=== PATIENT | female | born 1980 | race Caucasian/White ===

== ENCOUNTER 2024-06-24 05:45 | Day surgery (SDC) | payer BC ==
[2024-06-19 15:58] VITALS: BP 128/83
[~2024-06-24] VITALS: Ht 162.6 cm; Wt 79.5 kg
[~2024-06-24 05:45] MED LIST: BACTRIM DS TAB1 EACH PO; CELEBREX200 MG PO; FERROUS SULFAT325 MG PO; GABAPENTIN300 MG PO; HYDROCODON-ACE1 EA11 PO; IBUPROFEN800 MG PO; IRON325 M1 PO; JOLESSA1 EACH PO; LACTATED RINGER'S 1,000 ML IV SCH; OZEMPIC0.25 MG/02 SQ; PRENA1 PLUS CO1 EACH PO; SENNA LAX8.6 MG PO; TERCONAZOLE20 GM VAGINAL; VIT D2-K1 20-1259 ML PO; ZOLOFT100 MG PO
[2024-06-24 05:54] VITALS: BP 131/82
[2024-06-24] MEDS ORDERED: IBLOOD GLUCOSE TEST STRIP 1 EA TEST VI PRN ×2 (07:00→08:15)
[2024-06-24] MEDS ORDERED: LIDOCAINE HCL 1% 5 ML SDV INJ ONE (07:00)
[2024-06-24] MEDS ORDERED: ondansetron HCL 4 MG/2 ML VIAL ONE (07:02)
[2024-06-24] MEDS ORDERED: KETOROLAC TROMETHAMINE 30 MG/ML VIAL ONE (07:02)
[2024-06-24] MEDS ORDERED: dexmedeTOMIDine HCl 200 MCG/2 ML VIAL ONE (07:02)
[2024-06-24] MEDS ORDERED: propofoL 200 MG/20 ML VIAL ONE (07:02)
[2024-06-24] MEDS ORDERED: DEXAMETHASONE SOD PHOS 4 MG/ML VIAL ONE (07:02)
[2024-06-24] MEDS ORDERED: MIDAZOLAM HCL 2 MG/2 ML VIAL ONE (07:03)
[2024-06-24] MEDS ORDERED: LIDOCAINE HCL 1% 30 ML SDV ONE (07:03)
[2024-06-24] MEDS ORDERED: KETAMINE in NS 50 MG/5 ML SYR ONE (07:05)
[2024-06-24] MEDS ORDERED: ACETAMINOPHEN 1,000 MG/100 ML VIAL ONE (07:09)
[2024-06-24] MEDS ORDERED: ROCURONIUM BROMIDE 50 MG/5 ML SYR ONE (07:25)
[2024-06-24] MEDS ORDERED: SUGAMMADEX SODIUM 200 MG/2 ML ML ONE (08:02)
[2024-06-24] MEDS ORDERED: fentaNYL citrate 50 MCG/ML SDV IV PRN (08:15)
[2024-06-24] MEDS ORDERED: NALOXONE HCL 0.4 MG SYR IV PRN ×2 (08:15→08:45)
[2024-06-24] MEDS ORDERED: ondansetron HCL 4 MG/2 ML VIAL IV PRN ×2 (08:15→08:45)
[2024-06-24] MEDS ORDERED: droPERidol 5 MG/2 ML VIAL IV PRN (08:15)
[2024-06-24] MEDS ORDERED: HYDROmorphone HCL 1 MG/ML SYR IV PRN (08:15)
[2024-06-24] MEDS ORDERED: OXYCODONE/APAP 5/325 TAB PO PRN (08:45)
[2024-06-24] MEDS ORDERED: FAMOTIDINE 20 MG/ 2 ML VIAL IV PRN (08:45)
[2024-06-24] MEDS ORDERED: MAGNESIUM HYDROXIDE/AL HYDROX 30 ML CUP PO PRN (08:45)
[2024-06-24] MEDS ORDERED: METOCLOPRAMIDE HCL 10 MG/2 ML SDV IV PRN (08:45)
[2024-06-24] MEDS ORDERED: MORPHINE SULFATE 10 MG/ML VIAL IV PRN (08:45)
[2024-06-24] MEDS ORDERED: SIMETHICONE 125 MG TABLET CHEWABLE PO PRN (08:45)
[2024-06-24] MEDS ORDERED: SIMETHICONE 125 MG TABLET CHEWABLE PO SCH (09:00)
[2024-06-24 09:20] VITALS: BP 108/72
[2024-06-24 10:27] VITALS: BP 121/86
[2024-06-24 11:19] VITALS: BP 130/76
--- NOTE | 2024-06-24 22:01 | OR ---
[facility] [address] [place], [place] [address] Signed DATE OF OPERATION: 06/24/2024 SURGEON: Rhona Shepard DO PREOPERATIVE DIAGNOSES: 1. Desires salpingectomy. 2. At risk for ovarian cancer. 3. IUD removal. POSTOPERATIVE DIAGNOSES: 1. Desires salpingectomy. 2. At risk for ovarian cancer. 3. IUD removal. PRODUCT AMBASSADOR: None. ANESTHESIA: General. PROCEDURES PERFORMED: 1. Bilateral salpingectomy. 2. IUD removal. ESTIMATED BLOOD LOSS: 10 mL. COMPLICATIONS: None. SPECIMEN: Bilateral fallopian tubes. INDICATIONS: Ms. Reed is a very pleasant 44-year-old female, who presents desiring salpingectomy and IUD removal. She and her have completed fertility and she would like to avoid hormonal contraception if possible. We reviewed the procedure in detail including risks, benefits, alternatives, and discussed that salpingectomy performed at [facility] is done primarily for ovarian cancer risk reduction. The patient understands and wished to proceed with the procedure. Electronically Signed By: RHONA SHEPARD DO (JD) 06/24/24 220 PATIENT NAME: RUPINDER REED OPERATIVE REPORT DATE OF : 84 REPORT #: [id number] PHYSICIAN: RHONA SHEPARD DO (JD) PCP: JOB WASHBURN PAC REPORT IS CONFIDENTIAL AND NOT TO BE RELEASED WITHOUT AUTHORIZATION [facility] [address] [place], [place] [address] Signed TECHNIQUE: The patient was taken to the OR where a time-out was performed to confirm correct patient and correct procedure. General anesthesia was adequately established. The patient was prepped and draped in dorsal lithotomy position with feet in Yellofin stirrups. ICPs were on and running and no preoperative antibiotics was indicated. A weighted speculum was placed in the vagina and the anterior lip of the cervix was grasped with an Allis clamp. The IUD was identified and easily removed with polyp forceps. A [employer] uterine manipulator was placed. A Michaels catheter was inserted and attention was turned to the abdomen. Surgeon's gloves were changed. The base of the umbilicus was infiltrated with 0.25% Marcaine with epinephrine and a 5 mm stab incision was made at the base of the umbilicus. A 5 mm assist port was placed under direct visualization without complication. Survey of the abdomen and pelvis was performed demonstrating normal liver, gallbladder, stomach, appendix, and pelvis. Normal uterus, tubes, and ovaries appreciated. No evidence of other pelvic pathology. 5 mm assist ports were placed in the left lower and right lower quadrants under direct visualization without complication. The right fallopian tube was grasped at the fimbriated end, elevated and divided along the mesosalpinx using LigaSure device. Excellent hemostasis was appreciated and the fallopian tube was amputated at the cornu. The tube was removed through the trocar and sent to pathology for further evaluation. The process was repeated on the left without complication. A small amount of oozing was noted from] the right lower quadrant assist port. The trocars were removed and Blaise-Sonja device was selected and the port site was closed with two sutures of 0 Vicryl passed laparoscopically. Excellent hemostasis was appreciated. The pelvis was irrigated, found to be hemostatic. Pneumoperitoneum was reduced. Trocars were removed and trocar sites were repaired using 3-0 Vicryl Rapide. Excellent hemostasis and cosmesis was appreciated. The Michaels catheter and uterine manipulator were removed. The patient was taken to the PACU in good and stable condition. Sponge, needle, and instrument count was correct x2 at the end of the procedure. DO HORTENCIA Lobo/STEVENL /[id number] Electronically Signed By: RHONA SHEPARD DO (JD) 06/24/242200 PATIENT NAME: RUPINDER REED OPERATIVE REPORT DATE OF : 84 REPORT #: [id number] PHYSICIAN: RHONA SHEPARD DO (JD) PCP: JOB WASHBURN PAC REPORT IS CONFIDENTIAL AND NOT TO BE RELEASED WITHOUT AUTHORIZATION [facility] [address] [place] [address] [place], [place] [address] Signed Copies: ~ Electronically Signed By: RHONA SHEPARD DO (JD) 06/24/242200 PATIENT NAME: RUPINDER REED OPERATIVE REPORT DATE OF : 84 REPORT #: [id number] PHYSICIAN: RHONA SHEPARD (LIAM) DO PCP: JOB WASHBURN PAC REPORT IS CONFIDENTIAL AND NOT TO BE RELEASED WITHOUT AUTHORIZATION
--- NOTE | 2024-06-27 16:33 | PATH ---
[facility] [address] [place], [place] [address] Signed SPECIMEN(S): A FALLOPIAN TUBES, BILATERAL SPECIMEN SOURCE: A. FALLOPIAN TUBES, BILATERAL CLINICAL HISTORY: Risk reduction for ovarian CA. FINAL PATHOLOGIC DIAGNOSIS: Fallopian tubes, bilateral, salpingectomy: - Fimbriated fallopian tube segments (two) with no significant pathologic changes BRP MICROSCOPIC EXAMINATION: Histologic sections of all submitted blocks are examined by light microscopy. These findings, together with the gross examination, support the pathologic diagnosis. GROSS DESCRIPTION: The specimen, labeled and designated "Derek, bilateral fallopian tubes," is received in formalin and consists of two undesignated fallopian tubes. Both show fimbria and violaceus and smooth serosa. The first tube measure 5.5 x 0.5 cm. The second fallopian tube measure 6.0 x 0.6 cm. Sectioning through both fallopian tubes is grossly unremarkable. Cassette Summary: (A1) first fallopian tube, labor representative sections (A2) second fallopian tube, labor representative sections JS (under the direct supervision of a pathologist) The Gross Description was prepared using a voice recognition system. The report was reviewed for accuracy; however, sound-alike word errors, addition and/or deletions may occur. If there is any question about this report, please contact Client Services. ADDITIONAL NOTES: Immunohistochemical and/or in situ hybridization studies if performed in this case included appropriate positive controls that reacted as expected. This test was developed and its performance characteristics determined by [facility]. It has not been cleared or approved by the U.S. Food and Drug Administration. The FDA has determined that such clearance or approval is not PATIENT NAME: RUPINDER MAIER PATHOLOGY DATE OF : 84 REPORT #: [id number] PHYSICIAN: PAULIE CAMARILLO PCP: JOB WASHBURN PAC REPORT IS CONFIDENTIAL AND NOT TO BE RELEASED WITHOUT AUTHORIZATION [facility] [address] [place], [place] [address] Signed necessary. This test is used for clinical purposes. It should not be regarded as investigational or for research. [facility] is certified under the Clinical Laboratory Improvement Amendments of 1988 (CLIA) as qualified to perform high complexity clinical laboratory testing. PERFORMING LABORATORY: Technical component was performed by [facility], [address] [place] [address] (CLIA# [id number]). Professional interpretation was performed by [facility] Pathology - [address] [id number] Diagnostician: Nathen Vasquez MD Pathologist Electronically Signed 06/27/2024 Copies: ~ PATIENT NAME: RUPINDER MAIER PATHOLOGY DATE OF : 84 REPORT #: [id number] PHYSICIAN: PAULIE PATHOLOGY PCP: JOB WASHBURN PAC REPORT IS CONFIDENTIAL AND NOT TO BE RELEASED WITHOUT AUTHORIZATION
== END 2024-06-24 11:44 | disposition home or self-care (01) ==
LOC: OPS 05:45 → DS 05:45 → OPS 07:30
PROVIDERS: ATTEND Obstetrics & Gynecology
PROC: 0UPD0HZ Removal of Contraceptive Device from Uterus and Cervix, Open Approach (ICD-10-PCS; 2024-06-24)
PROC: 0UT74ZZ Resection of Bilateral Fallopian Tubes, Percutaneous Endoscopic Approach (ICD-10-PCS; principal; 2024-06-24 07:30)
DX: Z40.03 Encounter for prophylactic removal of fallopian tube(s) (principal); Z30.432 Encounter for removal of intrauterine contraceptive device; Z30.2 Encounter for sterilization
CPT/HCPCS: 00840; J0131; J1100; J1885; J2250; J2405; J2704; J3010; J3490; J7121

== ENCOUNTER 2025-08-15 10:30 | Emergency (ER) | payer OTHER, BC ==
[~2025-08-15] VITALS: Ht 162.6 cm; Wt 76.0 kg
[~2025-08-15 10:30] MED LIST changes: -LACTATED RINGER'S 1,000 ML IV SCH
[2025-08-15] MEDS ORDERED: IBUPROFEN 600 MG TAB PO ONE (11:15)
[2025-08-15 12:24] VITALS: BP 126/75
== END 2025-08-15 12:24 | disposition home or self-care (01) ==
LOC: ED 10:30
DX: S93.402A Sprain of unspecified ligament of left ankle, initial encounter (principal); Z79.85 Long-term (current) use of injectable non-insulin antidiabetic drugs; Z79.899 Other long term (current) drug therapy; X50.1XXA Overexertion from prolonged static or awkward postures, initial encounter; Y93.02 Activity, running
CPT/HCPCS: 73610; 99283; A9270

== ENCOUNTER 2025-11-23 07:35 | Day surgery (SDC) | payer BC ==
[~2025-11-23] VITALS: Ht 162.6 cm; Wt 77.0 kg
[~2025-11-23 07:35] MED LIST changes: +CEFAZOLIN SODIUM 2 GM in SODIUM CHLORIDE 0.9% 100 ML IV SCH; +IBLOOD GLUCOSE TEST STRIP 1 EA TEST VI PRN; +KETOROLAC TROMETHAMINE 30 MG/ML VIAL ONE; +LACTATED RINGER'S 1,000 ML IV SCH; +LIDOCAINE HCL 1% 5 ML SDV INJ ONE; +WELLBUTRIN XL150 MG PO
[2025-11-23 07:47] VITALS: BP 143/86
[2025-11-23] MEDS ORDERED: fentaNYL citrate 100 MCG/2 ML VIAL ONE (08:11)
[2025-11-23] MEDS ORDERED: MIDAZOLAM HCL 2 MG/2 ML VIAL ONE (08:11)
[2025-11-23] MEDS ORDERED: LIDOCAINE HCL 2% 5 ML SDV ONE (08:19)
[2025-11-23] MEDS ORDERED: DEXAMETHASONE SOD PHOS 4 MG/ML VIAL ONE (08:29)
[2025-11-23] MEDS ORDERED: KETOROLAC TROMETHAMINE 30 MG/ML VIAL ONE (08:29)
[2025-11-23] MEDS ORDERED: ACETAMINOPHEN 1,000 MG/100 ML VIAL ONE (08:29)
[2025-11-23] MEDS ORDERED: HYDROCODON-ACE1 EA10 PO (08:53)
[2025-11-23] MEDS ORDERED: DICLOFENAC SODI75 MG PO (08:53)
[2025-11-23] MEDS ORDERED: NALOXONE HCL 0.4 MG SYR IV PRN (09:00)
[2025-11-23] MEDS ORDERED: KETOROLAC TROMETHAMINE 15 MG/ML VIAL IV PRN (09:00)
[2025-11-23] MEDS ORDERED: DICLOFENAC SOD 75 MG TABEC PO SCH (09:00)
[2025-11-23] MEDS ORDERED: fentaNYL citrate 50 MCG/ML SDV IV PRN (09:00)
[2025-11-23] MEDS ORDERED: HYDROCODONE/ACETA 5/325 TAB PO PRN (09:00)
[2025-11-23] MEDS ORDERED: IBLOOD GLUCOSE TEST STRIP 1 EA TEST VI PRN (09:00)
--- NOTE | 2025-11-23 09:03 | NUR ---
11/23/25 0903 Michaela Jett 0853-PT ARRIVES TO PACU, VIA STRETCHER, PT NOT RESPONSIVE TO NOXIOUS STIMULI, OPA IN PLACE, RR EVEN AND UNLABORED, VSS ON 6L VIA MASK.
[2025-11-23 09:40] VITALS: BP 132/73
--- NOTE | 2025-11-23 09:49 | NUR ---
0940-PT BACK TO ROOM FROM PACU ON RA. RECEIVED REPORT FROM TIFFANIE. PT IS AWAKE. RESP EVEN AND UNLABORED. DENIES PAIN AND NAUSEA. CRYO CUFF IN PLACE AND RUNNING. PT DRINKING WATER AND EATING APPLESAUCE. NO OTHER NEEDS AT THIS TIME. CALL LIGHT WITHIN REACH.
[2025-11-23 10:38] VITALS: BP 132/80
--- NOTE | 2025-11-23 11:07 | NUR ---
1030 HOURLY ROUNDING DONE WITH PT. PT ABLE TO AMBUALTE TO BATHROOM AND VOID 200 MLS OF CLEAR YELLOW URINE. PT REPORTS TOLERABLE 1/10 PAIN. PT HAS NO NAUSEA. PT ABLE TO AMBUALTE BACK TO ROOM. 1040 DISCHARGE PAPERWORK GONE OVER WITH PT AND DAUGHTER. NO QUESTIONS AT THIS TIME. 1051 PT DISCHARGED FROM DAY SURGERY VIA WHEELCHAIR TO THE FRONT OF THE HOSPITAL TO PT'S DAUGHTERS CAR. PT HAS CRYO CUFF, PERSONAL ITEMS AND DISCHARGE PAPERWORK IN HAND.
--- NOTE | 2025-11-23 11:34 | OR ---
[facility] [address] [place], [place] [address] Signed DATE OF OPERATION: 11/23/2025 SURGEON: Cristina Torres MD PREOPERATIVE DIAGNOSIS: Medial meniscus tear, right knee. POSTOPERATIVE DIAGNOSIS: Medial meniscus tear, right knee. PROCEDURE PERFORMED: Right knee arthroscopy with partial medial meniscectomy, debridement of lateral femoral condyle flaps. TELEPHONE REPAIRER: Mallory Ruelas PA-C. Mallory was present and critical for all portions of procedure. ANESTHESIA: General. BLOOD LOSS: Minimal. BRIEF HISTORY: Rupinder is a 45-year-old female who had an ACL reconstruction many years ago. She developed painful catching and instability in her knee. Risks and benefits of operative treatment were discussed with her and she elected to proceed. Once consent was obtained she was taken to the operating room. After adequate anesthesia she was placed on the OR bed. The left knee was flexed, abducted, and externally rotated on a well-padded leg matthews. Right was placed in well-padded proximal thigh leg matthews and prepped and draped in a standard sterile fashion. The portal sites were injected with 0.25% Marcaine with epinephrine. The standard inferolateral and superolateral portals were established and the scope was introduced in the knee. ARTHROSCOPIC FINDINGS: The patellofemoral joint was intact. Medial and lateral gutters were clear, although there were large osteophytes on both sides. The ACL was noted to be incompetent and stretched. 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 Grade 2 to 3 disease on the tibial side was a complex tear Electronically Signed By: CRISTINA TORRES MD 11/23/25 1134 PATIENT NAME: RUPINDER MAIER OPERATIVE REPORT DATE OF : 84 REPORT #: [id number] PHYSICIAN: CRISTINA TORRES MD PCP: JOB WASHBURN PAC REPORT IS CONFIDENTIAL AND NOT TO BE RELEASED WITHOUT AUTHORIZATION [facility] [address] [place], [place] [address] Signed posteriorly. Lateral compartment showed a small area of grade 4 chondromalacia in the femur and grade 2 disease on the tibial side with the exception of the far posterior, which was grade 3. No lateral meniscus tear. DESCRIPTION OF OPERATION: Standard inferomedial portal was made after localization using a spinal needle. Straight and curved biters were used to trim the meniscus tear back to a stable rim. The chondral flaps were then debrided with the shaver as was the meniscus. The meniscus was then feathered out anteriorly and far posteriorly. The lateral femoral condyle was also debrided with the shaver. The meniscus again was found to be intact. Scope was withdrawn after evacuating all the debris. The portals were closed with 3-0 nylon and dressed with Xeroform, 4 x 8 and SYLVIA wrap. She tolerated the procedure well. All sponge, needle, and instrument counts were correct. Cristina Torres MD BA/STEVENL /[id number] Copies: ~ Electronically Signed By: CRISTINA TORRES MD 11/23/25 1134 PATIENT NAME: RUPINDER MAIER HARMAN OPERATIVE REPORT DATE OF : 84 REPORT #: [id number] PHYSICIAN: CRISTINA TORRES MD PCP: JOB WASHBURN PAC REPORT IS CONFIDENTIAL AND NOT TO BE RELEASED WITHOUT AUTHORIZATION
[2025-11-23] MEDS ORDERED: SEVOFLURANE 250 ML BTL INH ONE (16:10)
== END 2025-11-23 10:51 | disposition home or self-care (01) ==
LOC: DS 07:35
PROVIDERS: ATTEND Specialist
PROC: 0SBC4ZZ Excision of Right Knee Joint, Percutaneous Endoscopic Approach (ICD-10-PCS; principal; 2025-11-23 09:05)
DX: S83.231A Complex tear of medial meniscus, current injury, right knee, initial encounter (principal); M94.261 Chondromalacia, right knee; X58.XXXA Exposure to other specified factors, initial encounter
CPT/HCPCS: 01400; 84703; J0131; J0688; J1100; J1885; J2003; J2250; J2405; J2704; J3010; J7121